=== PATIENT | female | born 1970 | race Caucasian/White ===

== ENCOUNTER 2021-10-13 10:19 | Day surgery (SDC) | payer BC ==
[~2021-10-13 10:19] MED LIST: Midazolam 1 MG/ML 2 ML SDV ONE; Propofol 200 MG/20 ML SDV ONE
[2021-10-13] MEDS ORDERED: Sodium Chloride 0.9% 10 ML Syringe FLUSH PRN (10:30)
[2021-10-13] MEDS ORDERED: Lactated Ringers 1,000 ML IV SCH (10:30)
[2021-10-13] MEDS ORDERED: Midazolam 1 MG/ML 2 ML SDV ONE (12:00)
[2021-10-13] MEDS ORDERED: Propofol 200 MG/20 ML SDV ONE (12:00)
--- NOTE | 2021-10-13 12:02 | PCM.PN ---
- General Info Date of Service: 10/13/21 - Review of Systems Systems Review Comment:: 51-year-old female referred for her initial screening colonoscopy. She does note a family history of colon cancer in an uncle. She is medically stable to proceed today. Her recent history and physical is reviewed and no significant changes are noted. I have discussed the proposed colonoscopy with the patient. Risks such as but not limited to bleeding and GI injury reviewed. She agrees to proceed. - Patient Data Vitals - Most Recent: Last Vital Signs Temp 98.0 F 10/13/21 11:10 Pulse 89 10/13/21 11:10 Resp 20 10/13/21 11:10 BP 134/72 10/13/21 11:10 Pulse Ox 95 10/13/21 11:10 Weight - Most Recent: 138.346 kg Med Orders - Current: Current Medications Lactated Ringer's (Ringers, Lactated) 1,000 mls @ 125 mls/hr IV ASDIRECTED ALAYNA Sodium Chloride (Sodium Chloride 0.9% 10 Ml Syringe) 10 ml FLUSH ASDIRECTED PRN PRN Reason: Keep Vein Open Discontinued Medications Midazolam HCl (Midazolam 1 Mg/Ml 2 Ml Sdv) Confirm Administered Dose 2 mg .ROUTE .STK-MED ONE Stop: 10/13/21 08:41 Propofol (Propofol 200 Mg/20 Ml Sdv) Confirm Administered Dose 400 mg .ROUTE .STK-MED ONE Stop: 10/13/21 08:41 Sepsis Event Note - Focused Exam Vital Signs: Vital Signs Temp Pulse Resp BP Pulse Ox 10/13/21 11:10 98.0 F 89 20 134/72 95 - Problem List Review Problem List Initiated/Reviewed/Updated: Yes - My Orders Last 24 Hours: My Active Orders 10/13/21 10:30 Patient Status [ADT] Routine Peripheral IV Care [RC] . DIRECTED Verify Patient Consent Obtain [RC] ASDIRECTED Lactated Ringers [Ringers, Lactated] 1,000 ml IV ASDIRECTED Sodium Chloride 0.9% [Saline Flush] 10 ml FLUSH ASDIRECTED PRN Peripheral IV Insertion Adult [OM.PC] Routine - Assessment Assessment:: Colon cancer screening - Plan Plan:: Colonoscopy
--- NOTE | 2021-10-13 12:38 | PCM.OPNOTE ---
- General Post-Op/Procedure Note Date of Surgery/Procedure: 10/13/21 Operative Procedure(s): Colonoscopy with polypectomy Findings: Small cecal polyp Colon otherwise normal Pre Op Diagnosis: Colon cancer screening Post-Op Diagnosis: Colon polyp Anesthesia Technique: MAC Primary Surgeon: Aashish Reyez Pathology: Colon polyp EBL in mLs: 0 Complications: None Condition: Good
--- NOTE | 2021-10-13 19:50 | OR ---
Date of Procedure: 10/13/2021 PREOPERATIVE DIAGNOSIS: Colon cancer screening. POSTOPERATIVE DIAGNOSES: Colon polyp, hemorrhoids. OPERATIONS PERFORMED: Colonoscopy with polypectomy. INDICATIONS FOR SURGERY: This is a 51-year-old female was referred for her initial screening colonoscopy. She denies any recent colon symptoms. FINDINGS: In the cecum, the patient has a small sessile polyp approximately 5 mm in size. The remainder of the colon appears normal. The patient does have small external hemorrhoids. PROCEDURE IN DETAIL: The patient was taken to the operating room. She was given intravenous sedation, and with her in the left lateral decubitus position, digital rectal exam was performed showing no rectal masses. The Olympus colonoscope was inserted into the rectum and retroflexed examination of the rectal canal was performed. The scope was then carefully advanced under direct visualization through the entire length of the colon until the cecum was reached. Cecal acquisition was confirmed by noting the normal internal cecal anatomy including the appendiceal orifice and the ileocecal valve. In the cecum, the above-described polyp was identified. This was removed with a cautery snare and retrieved into a polyp trap. The cecum was carefully examined and then the scope was slowly withdrawn sequentially re-examining the colonic segments until the entire colon and rectum had been fully examined. The scope was removed and the patient was taken from the operating room in satisfactory condition. ESTIMATED BLOOD LOSS: Zero. COMPLICATIONS: None. PROGNOSIS: Good. SHIRLENE Reyez MD /[id number]
== END 2021-10-13 13:48 | disposition home or self-care (01) ==
LOC: LL.SDS 10:19
PROVIDERS: ATTEND Surgery
DX: Z12.11 Encounter for screening for malignant neoplasm of colon (principal); D12.0 Benign neoplasm of cecum; E78.5 Hyperlipidemia, unspecified; E66.01 Morbid (severe) obesity due to excess calories; L30.9 Dermatitis, unspecified; Z79.899 Other long term (current) drug therapy; Z68.42 Body mass index [BMI] 45.0-49.9, adult; Z80.0 Family history of malignant neoplasm of digestive organs
CPT/HCPCS: 00812; 45385; J2250; J2704